=== PATIENT | male | born 1995 | race Caucasian/White ===

== ENCOUNTER → 2018-03-05 20:07 | Outpatient (CLI) | payer OTHER, SELFPAY | PROVIDERS: Visit Provider Nurse Practitioner Family | DX: J02.9 Acute pharyngitis, unspecified (principal) ==

== ENCOUNTER 2021-05-17 16:54 | Emergency (ER) | payer MEDICAID, SELFPAY ==
[2021-05-17 17:06] VITALS: BP 125/67; PULSE 86; RESP 19; TEMP 38.1; O2SAT 98; BMI 29.4
--- NOTE | 2021-05-17 17:16 | HMH.EDUTC ---
[facility] [place] Disposition Clinical Impression: Vertigo Otitis media Qualifiers: Otitis media type: unspecified Laterality: left Qualified Code(s): H66.92 - Otitis media, unspecified, left ear Disposition: Home, Self-Care Condition on Discharge: Good Instructions: Vertigo, DI for Viral Syndrome Additional Instructions: *Monitor Temp, Over the counter Motrin or Tylenol as directed/as needed Tylenol every 4 hours and Motrin every 6 hours (as long as your family doctor has told you that you can take it) for fever or pain. and straight to ER if unable to lower temp less than 101.0 after medication given *Warm salt water gargles may help to soothe the throat *Throat Lozenges *Warm fluids like tea with honey may help to soothe the throat *Sleep elevated *Humidifier/Vaporizer Follow up IMMEDIATELY for new or worsening symptoms or no Noticeable improvement over the next 48-72 hours. 911 for difficulty breathing or swallowing You were tested for today for COVID19 your test result should be back in the next 24-48 hours, you may check your results on the [facility] My Health Portal if you have trouble logging on you may call support to help you You was given a handout with instructions for Self Quarantine and Self isolation for while you wait on test results and what to do if they are positive If you are positive the Health Dept will be contacting you also Make sure to take your Vitamins Vit. C Vit D and Zinc if you can take them Prescriptions: Meclizine HCl 12.5 mg PO Q8HP PRN #10 tab PRN Reason: Vertigo Transmission Status: Received by [facility] # Amoxicillin [Amoxicillin 875MG Tab] 875 mg PO Q12H #20 tab Transmission Status: Received by [facility] # methylPREDNISolone [Medrol 4mg tab] 4 mg PO DIRECTED #21 tab Transmission Status: Received by [facility] # Referrals: Tej Alarcon APRN [Primary Care Provider] - As needed Forms: Work/School Release Time of Disposition: 17:53 Medical Decision Making - Irvin Inquiry Pt receiving controlled substance: No Irvin was queried for this patient: No Vital Signs: 05/17/21 17:06 05/17/21 18:01 Temperature 100.6 F H 98.3 F Temperature Source Oral Pulse Rate 86 Pulse Rate [Left] 86 Respiratory Rate 19 19 Blood Pressure 125/67 Blood Pressure [Right Arm] 125/67 Blood Pressure Mean [Right Arm] 86 02 Sat by Pulse Oximetry 98 - Lab Data Lab results reviewed: Yes: I reviewed the patient's lab results. Lab Results 05/17/21 17:16: Influenza Type A Ag Negative, Influenza Type B Ag Negative Orders (Tests/Meds): ED MEDICATIONS Discontinued Medications Generic Name Dose Route Start Last Admin Trade Name Hesham PRN Reason Stop Dose Admin Acetaminophen 650 mg 05/17/21 17:46 05/17/21 17:54 Acetaminophen 325mg Tab PO 05/17/21 17:47 650 mg ONCE ONE Administration ORDERS Category Date Time Status Covid-19 Nasal PCR ([facility]) Routine Lab 05/17/21 17:10 Received [facility] [place] HPI - General Stated complaint: fever,cough,HAm Congestion Time Seen by Provider: 05/17/21 17:16 Mode of Arrival: Ambulatory Source of Information: Patient Limitations: No Limitations Description of Symptoms (Recalled from Triage Doc. by RN): pt c/o a cough, dizziness, myalgia, and chills since yesterday. HEENT Symptoms (Recalled from RN notes): No Resp Symptoms (Recalled from RN notes): Yes (cough) Skin Symptoms (Recalled from RN notes): No MS Symptoms (Recalled from RN notes): No Functional Status (Recalled from RN notes): wnl - History of Present Illness Provider Complaint: Patient state that he started feeling bad yesterday States that he has been having body aches, chills, fever, feeling dizzy at times when he moves around too quickly States that today he has also felt weak and just doesnt feel good States that he unsure if he may have been exposed to COVID or not - Related Data Previous Rx's Medication Instructions Manjit
[2021-05-17 17:24] LABS: UTC Influenza A Antigen Negative (Negative); UTC Influenza B Antigen Negative (Negative)
[2021-05-17 18:01] VITALS: BP 125/67; PULSE 86; RESP 19; TEMP 36.8
== END 2021-05-17 18:03 | disposition home or self-care (01) ==
PROVIDERS: Emergency Provider Nurse Practitioner; PCP Nurse Practitioner Family
DX: U07.1 COVID-19 (principal); H66.92 Otitis media, unspecified, left ear
CPT/HCPCS: 87804; 99202; C9803; G0463; U0003; U0005

== ENCOUNTER 2021-06-21 19:41 | Emergency (ER) | payer MEDICAID, SELFPAY ==
[2021-06-21 19:51] VITALS: BP 136/85; PULSE 75; RESP 18; TEMP 36.7; O2SAT 97; BMI 28.5
--- NOTE | 2021-06-21 19:53 | HMH.EDUTC ---
[facility] [place] Clinical Impression: Urinary frequency UTI (urinary tract infection) Qualifiers: Urinary tract infection type: site unspecified Hematuria presence: without hematuria Qualified Code(s): N39.0 - Urinary tract infection, site not specified Disposition: Home, Self-Care Condition on Discharge: Good Instructions: DI for Urinary Tract Infection (UTI), Phenazopyridine Additional Instructions: Drink plenty of fluids. Make sure you drink plenty of water tonight to get the medications going through you good. Take tylenol or ibuprofen for pain or fever. Take the medications as directed. Follow up with your regular doctor. GO TO THE ER FOR ANY WORSENING SYMPTOMS We are culturing the urine. This test takes 3 days to complete but it will tell more about the cause of your symptoms. If your symptoms are not getting some better or if they are getting worse over the next 24 to 48 hours, please return and go through the ER. A ct scan would tell more about the cause of your symptoms. The zofran on your prescriptions is for if the other medications cause you to be nauseated. Prescriptions: Ondansetron [Zofran 4mg ODT] 4 mg PO Q8HP PRN #20 tab PRN Reason: Nausea Transmission Status: Received by [facility] # Sulfamethoxazole/Trimethoprim [Bactrim DS tablet] 1 each PO BID 10 Days #20 tab Transmission Status: Received by [facility] # Phenazopyridine HCl [Pyridium 200mg Tablet] 200 pow PO TID #6 tab Transmission Status: Received by [facility] #[id number] Referrals: Tej Alarcon APRN [Primary Care Provider] - Time of Disposition: 21:13 Medical Decision Making - Medical Records Medical records reviewed: No: I reviewed the patient's medical records. - Irvin Inquiry Pt receiving controlled substance: No Vital Signs: 06/21/21 19:51 06/21/21 21:13 Temperature 98.1 F 98.1 F Temperature Source Oral Pulse Rate 75 Pulse Rate [Left] 75 Respiratory Rate 18 18 Blood Pressure 136/85 Blood Pressure [Right Arm] 136/85 Blood Pressure Mean [Right Arm] 102 02 Sat by Pulse Oximetry 97 - Lab Data Lab results reviewed: Yes: I reviewed the patient's lab results. Lab Results 06/21/21 20:01: Urine Color Dark yellow, Urine Appearance Clear, Urine pH 6.0, Ur Specific [place] > 1.030 H, Urine Protein Negative, Urine Glucose (UA) Negative, Urine Ketones Negative, Urine Blood Negative, Urine Nitrate Negative, Urine Bilirubin Negative, Urine Urobilinogen 0.2, Ur Leukocyte Esterase Negative Orders (Tests/Meds): ED MEDICATIONS Discontinued Medications Generic Name Dose Route Start Last Admin Trade Name Freq PRN Reason Stop Dose Admin Ondansetron HCl 4 mg 06/21/21 21:08 06/21/21 21:11 Ondansetron 4mg Odt SL 06/21/21 21:09 4 mg ONCE ONE Administration Phenazopyridine HCl 200 mg 06/21/21 21:09 06/21/21 21:11 Phenazopyridine 200mg Tablet PO 06/21/21 21:10 200 mg ONCE ONE Administration Trimethoprim/Sulfamethoxazole 1 each 06/21/21 21:09 06/21/21 21:11 Sulfa/Trimethoprim 1 Tablet PO 06/21/21 21:10 1 each ONCE ONE Administration ORDERS Category Date Time Status Urine Culture Stat Micro 06/21/21 19:50 Received [facility] [place] - General Stated complaint: UTI or Bladder Infection Time Seen by Provider: 06/21/21 19:53 - History of Present Illness Provider Complaint: He states that for the past 2 days he has had burning with urination and urinary frequency. - Related Data Previous Rx's Medication Instructions Recorded Amoxicillin [Amoxicillin 875MG 875 mg PO Q12H #20 tab 05/17/21 Tab] Meclizine HCl 12.5 mg PO Q8HP PRN #10 tab 05/17/21 methylPREDNISolone [Medrol 4mg 4 mg PO DIRECTED #21 tab 05/17/21 tab] Ondansetron [Zofran 4mg ODT] 4 mg PO Q8HP PRN #20 tab 06/21/21 Phenazopyridine HCl [Pyridium 200 pow PO TID #6 tab 06/21/21 200mg Tablet] Sulfamethoxazole/Trimethoprim
[2021-06-21 20:04] LABS: Apearance,Urine Clear (Clear); Bilirubin,Urine Negative (Negative); Blood, Urine Negative (Negative); Color,Urine Dark Yellow (Yellow); Glucose,Urine (UA) Negative (Negative); Ketones,Urine Negative (Negative); Protein,Urine Negative (Negative); Specific Gravity, Urine > 1.030 (1.005-1.030); UTC Leukocyte Esterase,Urine Negative (Negative); UTC Nitrate,Urine Negative (Negative); Urobilinogen,Urine 0.2 EU/dl (0.2)
[2021-06-21 21:13] VITALS: BP 136/85; PULSE 75; RESP 18; TEMP 36.7
[2021-06-23 22:14] LABS: Neisseria gonorrhoeae, NAA Negative (Negative)
== END 2021-06-21 21:20 | disposition home or self-care (01) ==
PROVIDERS: Emergency Provider Nurse Practitioner Family; PCP Nurse Practitioner Family
DX: N39.0 Urinary tract infection, site not specified (principal)
CPT/HCPCS: 81003; 87086; 87491; 87591; 99202; G0463

== ENCOUNTER → 2021-06-27 16:00 | Outpatient (CLI) | payer MEDICAID, SELFPAY | PROVIDERS: Visit Provider Nurse Practitioner Family | DX: R35.0 Frequency of micturition (principal) | CPT/HCPCS: 87086 ==

== ENCOUNTER 2021-10-13 11:47 | Emergency (ER) | payer MEDICAID, SELFPAY ==
[2021-10-13 11:55] VITALS: BP 134/81; PULSE 80; RESP 18; TEMP 37.1; O2SAT 98; BMI 28.3
--- NOTE | 2021-10-13 12:23 | HMH.EDUTC ---
[facility] [place] Clinical Impression: Gastroenteritis, Anal irritation Diarrhea Qualifiers: Diarrhea type: unspecified type Qualified Code(s): R19.7 - Diarrhea, unspecified Disposition: Home, Self-Care Condition on Discharge: Good Instructions: DI for Hemorrhoids, DI for Viral Gastroenteritis -- Adult Additional Instructions: Drink plenty of fluids. Take tylenol or ibuprofen for pain or fever. Use the medications as directed. Follow up with your regular doctor. GO TO THE ER FOR ANY WORSENING SYMPTOMS If your diarrhea symptoms continue for the next 24 to 48 hours, please return a stool sample back to the lab. Prescriptions: Ondansetron [Zofran 4mg ODT] 4 mg PO Q8HP PRN #12 tab PRN Reason: Nausea Transmission Status: Pending to [facility] # Hydrocortisone Acetate [Anusol HC 30mg Supp] 1 supp RC TIDP PRN #20 supp PRN Reason: Moderate Pain Transmission Status: Pending to [facility] # Referrals: Tej Alarcon APRN [Primary Care Provider] - Forms: Work/School Release Time of Disposition: 12:50 Medical Decision Making - Medical Records Medical records reviewed: No: I reviewed the patient's medical records. - Irvin Inquiry Pt receiving controlled substance: No Vital Signs: 10/13/21 11:55 10/13/21 12:52 Temperature 98.7 F 98.7 F Temperature Source Oral Pulse Rate 80 Pulse Rate [Right Brachial] 80 Respiratory Rate 18 18 Blood Pressure 134/81 Blood Pressure [Right Arm] 134/81 Blood Pressure Mean [Right Arm] 98 Blood Pressure Source [Right Arm] Automatic Cuff Blood Pressure Position [Right Arm] Sitting 02 Sat by Pulse Oximetry 98 Oxygen Delivery Method Room Air [facility] [place] HPI - General Stated complaint: difficulty using the restroom, painful Time Seen by Provider: 10/13/21 12:23 Mode of Arrival: Ambulatory Source of Information: Patient Limitations: No Limitations Description of Symptoms (Recalled from Triage Doc. by RN): PATIENT C/O DIARRHEA AND STATES IT FEEL LIKE RAZOR BLADES WHEN HAVING A BOWEL MOVEMENT SINCE THIS MORNING. DENIES ANY BLOOD WITH BOWEL MOVEMENTS HEENT Symptoms (Recalled from RN notes): No Resp Symptoms (Recalled from RN notes): No Skin Symptoms (Recalled from RN notes): No MS Symptoms (Recalled from RN notes): No Functional Status (Recalled from RN notes): WNL - History of Present Illness Provider Complaint: He states that he has had a diarrhea for the past 3 days. She rectal area has became inflamed and it is very painful when he has a bowel movment. - Related Data Previous Rx's Medication Instructions Recorded Hydrocortisone Acetate [Anusol HC 1 supp RC TIDP PRN #20 supp 10/13/21 30mg Supp] Ondansetron [Zofran 4mg ODT] 4 mg PO Q8HP PRN #12 tab 10/13/21 Allergies Allergy/AdvReac Type Severity Reaction Status Date / Time No Known Allergies Allergy Verified 10/13/21 12:16 - Worker's Comp Is this a Worker's Comp case?: No [facility] History - Hepatitis A Screen Attestation statement:: This patient has been screened for Hepatitis A risk factors. I have reviewed the patient's past medical history: Yes Laterality Cases: Bilateral: Tonsillectomy Other Surgeries: Yes: No Previous Surgery Amputation: No Fractures: No - Social History Smoking Status: Current some day smoker Alcohol Intake: never Alcohol Intake Frequency:: holidays/special occasions only Substance Use Type: denies use Occupational Status: other Housing: house Family Hx:: Thyroid Disorder ROS Obtained: Yes All systems reviewed & no additional complaints - Constitutional Constitutional: Denies chills, Denies fever(s) - Eyes Eyes: Denies eye discharge - ENT Ears, Nose, Mouth, and Throat: Denies dizziness, Denies otalgia, Denies sore throat - Cardiovascular Cardiovascular: Denies chest pain - Respiratory Respiratory: Denies chest congestion, Denies cough, Denies dyspnea, Denies stridor, Denies wheezing - Gastr
[2021-10-13 12:52] VITALS: BP 134/81; PULSE 80; RESP 18; TEMP 37.1; O2SAT 98
== END 2021-10-13 12:55 | disposition home or self-care (01) ==
PROVIDERS: Emergency Provider Nurse Practitioner Family; PCP Nurse Practitioner Family
DX: K52.9 Noninfective gastroenteritis and colitis, unspecified (principal); K62.89 Other specified diseases of anus and rectum
CPT/HCPCS: 99212; G0463

== ENCOUNTER 2021-11-07 07:59 | Emergency (ER) | payer MEDICAID, SELFPAY ==
[2021-11-07 08:10] VITALS: BP 134/83; PULSE 78; RESP 19; TEMP 36.9; O2SAT 98; BMI 28.2
[2021-11-07 08:25] VITALS: BP 134/83; PULSE 78; RESP 19; TEMP 36.9; O2SAT 98
--- NOTE | 2021-11-07 08:27 | HMH.EDUTC ---
[facility] [place] Clinical Impression: Exposure to COVID-19 virus Disposition: Home, Self-Care Condition on Discharge: Good Instructions: DI for COVID-19 (Suspected or Confirmed ), Preventing the Spread of Coronavirus Discharge Instructions Additional Instructions: *Monitor Temp, Over the counter Motrin or Tylenol as directed/as needed Tylenol every 4 hours and Motrin every 6 hours (as long as your family doctor has told you that you can take it) for fever or pain. and straight to ER if unable to lower temp less than 101.0 after medication given Follow up IMMEDIATELY for new or worsening symptoms or no Noticeable improvement over the next 48-72 hours. 911 for difficulty breathing or swallowing You were tested for today for COVID19 your test result should be back in the next 24-48 hours, you may check your results on the [facility] My Health Portal Make sure to take your Vitamins Vit. C Vit D and Zinc if you can take them Referrals: Tej Alarcon APRN [Primary Care Provider] - As needed Forms: Work/School Release Medical Decision Making - Irvin Inquiry Pt receiving controlled substance: No Irvin was queried for this patient: No Vital Signs: 11/07/21 08:10 11/07/21 08:25 Temperature 98.4 F 98.4 F Temperature Source Oral Pulse Rate 78 Pulse Rate [Left Brachial] 78 Respiratory Rate 19 19 Blood Pressure 134/83 Blood Pressure [Left Arm] 134/83 Blood Pressure Mean [Left Arm] 100 Blood Pressure Source [Left Arm] Automatic Cuff Blood Pressure Position [Left Arm] Sitting 02 Sat by Pulse Oximetry 98 Oxygen Delivery Method Room Air Orders (Tests/Meds): ORDERS Category Date Time Status Covid-19 Nasal PCR ([facility]) Routine Lab 11/07/21 08:10 Received [facility] [place] HPI - General Stated complaint: covid test Time Seen by Provider: 11/07/21 08:27 Mode of Arrival: Ambulatory Source of Information: Patient Limitations: No Limitations Description of Symptoms (Recalled from Triage Doc. by RN): COVID TEST D/T EXPOSURE, DENIES SYMPTOMS HEENT Symptoms (Recalled from RN notes): No Resp Symptoms (Recalled from RN notes): No Skin Symptoms (Recalled from RN notes): No MS Symptoms (Recalled from RN notes): No Functional Status (Recalled from RN notes): WNL - History of Present Illness Provider Complaint: Patient states that he was recently around his girlfriend that tested positive yesterday for COVID State that he isnt having any symptoms but wanted to get tested due to exposure - Related Data Previous Rx's Medication Instructions Recorded Hydrocortisone Acetate [Anusol HC 1 supp RC TIDP PRN #20 supp 10/13/21 30mg Supp] Ondansetron [Zofran 4mg ODT] 4 mg PO Q8HP PRN #12 tab 10/13/21 Allergies Allergy/AdvReac Type Severity Reaction Status Date / Time No Known Allergies Allergy Verified 10/13/21 12:16 - Worker's Comp Is this a Worker's Comp case?: No [facility] History - Hepatitis A Screen Attestation statement:: This patient has been screened for Hepatitis A risk factors. I have reviewed the patient's past medical history: Yes Laterality Cases: Bilateral: Tonsillectomy Other Surgeries: Yes: No Previous Surgery Amputation: No Fractures: No - Social History Smoking Status: Current some day smoker Alcohol Intake: never Alcohol Intake Frequency:: holidays/special occasions only Substance Use Type: denies use Occupational Status: other Housing: house Family Hx:: Thyroid Disorder ROS Obtained: Yes All systems reviewed & no additional complaints, Yes Systems reviewed as appropriate & no additional complaints - Constitutional Constitutional: Reports system reviewed and no additional complaints, except as docu, Denies body ache, Denies chills, Denies fever(s) - ENT Ears, Nose, Mouth, and Throat: Reports system reviewed and no additional complaints, except as docu, Denies nasal congestion, Denies nasal discharge, Denies sore throat - Cardiovascular Cardiovascular: Reports system reviewe
== END 2021-11-07 08:30 | disposition home or self-care (01) ==
PROVIDERS: Emergency Provider Nurse Practitioner; PCP Nurse Practitioner Family
DX: Z20.822 Contact with and (suspected) exposure to COVID-19 (principal)
CPT/HCPCS: 99212; C9803; G0463; U0003; U0005